=== PATIENT | male | born 1985 | race Caucasian/White ===

== ENCOUNTER 2017-05-02 10:37 | Emergency (ER) | payer MEDICAID ==
[2017-05-02 11:20] LABS: APPEARANCE CLEAR (CLEAR); BILIRUBIN NEGATIVE (NEGATIVE); COLOR YELLOW (YELLOW); GLUCOSE NEGATIVE (NEGATIVE); KETONE NEGATIVE (NEGATIVE); LEUKOCYTE ESTERASE NEGATIVE (NEGATIVE); NITRITE NEGATIVE (NEGATIVE); PROTEIN NEGATIVE (NEGATIVE); UROBILINOGEN NORMAL (NORMAL)
[2017-05-02 11:25] LABS: BASOPHILS 0.2 % (0-2); EOSINOPHILS 0.7 % (0-7); HEMATOCRIT 43.6 % (42.0-54.0); HEMOGLOBIN 15.8 g/dL (13.5-17.5); IMMATURE GRANULOCYTES 0.5 % (0-5); LYMPHOCYTES 13.3 % (15-50); MCH 30.7 pg (26.0-34.0); MCHC 36.2 g/dL (31.0-37.0); MCV 84.8 fL (80.0-100.0); MEAN PLATELET VOLUME 9.6 fL (7.4-10.4); MONOCYTES 6.6 % (2-11); NEUTROPHILS 78.7 % (40-80); PLATELET COUNT 278 10x3/uL (130-400); RBC 5.14 10x6/uL (4.20-6.10)
[2017-05-02 11:41] LABS: ALBUMIN 4.4 g/dL (3.4-5.0); ALKALINE PHOSPHATASE 45 U/L (46-116); ALT (SGPT) 28 U/L (10-68); BILIRUBIN - TOTAL 1.38 mg/dL (0.2-1.3); CALC OSMOLALITY 281 mosm/kg (275-300); CALCIUM 9.6 mg/dL (8.5-10.1); CARBON DIOXIDE 24.4 mmol/L (21.0-32.0); CHLORIDE - SERUM 102 mmol/L (98-107); GLUCOSE 104 mg/dL (74-106); LIPASE 108 U/L (73-393); POTASSIUM - SERUM 3.4 mmol/L (3.5-5.1); PROTEIN - SERUM 7.9 g/dL (6.4-8.2); SODIUM 141 mmol/L (136-145); UREA NITROGEN 15 mg/dL (7-18); eGFR NON AFRICAN AMERICAN > 90 mL/min (90-120)
== END 2017-05-02 13:17 | disposition home or self-care (01) ==
LOC: D.ER 10:37
PROVIDERS: Emergency Medicine
DX: R11.10 Vomiting, unspecified (principal)

== ENCOUNTER 2017-06-04 12:01 | Inpatient (IN) | payer MEDICAID ==
[~2017-06-04] VITALS: Ht 170.2 cm; Wt 68.0 kg
[2017-06-04 15:07] LABS: BASOPHILS 0.1 % (0-2); EOSINOPHILS 0.1 % (0-7); HEMATOCRIT 42.9 % (42.0-54.0); HEMOGLOBIN 15.1 g/dL (13.5-17.5); IMMATURE GRANULOCYTES 0.5 % (0-5); LYMPHOCYTES 3.8 % (15-50); MCH 30.7 pg (26.0-34.0); MCHC 35.2 g/dL (31.0-37.0); MCV 87.2 fL (80.0-100.0); MEAN PLATELET VOLUME 10.1 fL (7.4-10.4); MONOCYTES 10.3 % (2-11); NEUTROPHILS 85.2 % (40-80); PLATELET COUNT 238 10x3/uL (130-400); RBC 4.92 10x6/uL (4.20-6.10); RDW 12.9 % (11.5-14.5); WBC 15.3 10x3/uL (4.8-10.8)
[2017-06-04 15:40] LABS: ALBUMIN 3.8 g/dL (3.4-5.0); ANION GAP 14.7 mmol/L (8-16); BILIRUBIN - TOTAL 3.15 mg/dL (0.2-1.3); CARBON DIOXIDE 23.7 mmol/L (21.0-32.0); CREATININE - SERUM 1.2 mg/dL (0.6-1.3); POTASSIUM - SERUM 3.4 mmol/L (3.5-5.1); PROTEIN - SERUM 7.2 g/dL (6.4-8.2)
[2017-06-04 15:50] LABS: APTT 25.4 SECONDS (22.8-39.4); INR 1.07 (0.85-1.17); PROTIME 13.8 SECONDS (11.6-15.0)
[2017-06-04 19:00] VITALS: BP 101/59
--- NOTE | 2017-06-04 19:44 | NUR ---
RECEIVED FROM ER, PT ADMITED TO DR. LOPEZ, GIRL FRIEND AT BEDSIDE, PT DENIES ANY NEEDS AT THIS TIME, BED IS LOW, SRX2, CALL LIGHT IN REACH, WILL CONTINUE PLAN OF CARE
[2017-06-04 19:54] LABS: GLUCOSE - CSF 70 MG/DL (40-75); PROTEIN - CSF 49 MG/DL (12-60)
[2017-06-04 20:00] LABS: APPEARANCE - CSF COLORLESS; RBC - CSF 2 cmm (0-0)
[2017-06-04 21:47] LABS: APPEARANCE CLEAR (CLEAR); BILIRUBIN NEGATIVE (NEGATIVE); COLOR DK YELLOW (YELLOW); GLUCOSE NEGATIVE (NEGATIVE); KETONE SMALL mg/dL (NEGATIVE); LEUKOCYTE ESTERASE NEGATIVE (NEGATIVE); NITRITE NEGATIVE (NEGATIVE); PROTEIN NEGATIVE (NEGATIVE); SPECIFIC GRAVITY 1.015 (1.005-1.020); UROBILINOGEN NORMAL (NORMAL)
[2017-06-05] VITALS: BP 118/62
[2017-06-05 01:23] VITALS: BMI 23.5
[2017-06-05 04:00] VITALS: BP 117/73
--- NOTE | 2017-06-05 04:17 | NUR ---
PT SLEEPING, GIRLFRIEND LYING NEXT TO HIM, BED IS LOW, SRX2, CALL LIGHT IN REACH, WILL CONTINUE TO MONITOR
--- NOTE | 2017-06-05 07:09 | NUR ---
PT SITTING UP IN BED SLEEPING RR EVEN AND UNLABORED. NO S/S DISTRESS NOTED. GIRLFRIEND NOTED SLEEPING IN BED BESIDE HIM. WILL CONT TO MONITOR.
[2017-06-05 08:20] VITALS: BP 129/84
[2017-06-05 12:35] VITALS: BP 142/84
--- NOTE | 2017-06-05 13:00 | NUR ---
PAGE INTO DR LOPEZ PT HAS TEMP 101.2, NO TYLENOL ON EMAR.
--- NOTE | 2017-06-05 14:21 | NUR ---
ANOTHER PAGE INTO DR LOPEZ, STILL HAVENT HEARD FROM HIM. PT C/O HIGH FEVER. NO MEDICATION TO GIVE TO BRING DOWN FEVER.
[2017-06-05 15:06] VITALS: BP 146/91
--- NOTE | 2017-06-05 15:38 | NUR ---
HAVE PAGED DR LOPEZ 3 TIMES STILL NO ANSWER. SPOKE WITH BOOM AD WRITER AND DOMENIC YANG SUP. SAID OK TO ORDER TYLENOL FOR PT FEVER, WILL ORDER.
--- NOTE | 2017-06-05 18:36 | NUR ---
PT LAYING IN BED FLAT RR EVEN AND UNLABORED DENIES NEEDS
--- NOTE | 2017-06-05 19:20 | NUR ---
RECEIVED REPORT, WILL ASSUME CARE OF PT, PT SLEEPING, BED IS LOW, SRX2, CALL LIGHT IN REACH, WILL CONTINUE PLAN OF CARE
[2017-06-05 20:00] VITALS: BP 104/64
[2017-06-06] VITALS: BP 126/84
[2017-06-06 04:00] VITALS: BP 136/78
--- NOTE | 2017-06-06 04:22 | NUR ---
ASSESSMENT COMPLETE, SEE FLOWSHEET, BED IS LOW, SRX2,CALL LIGHT IN REACH, GIRLFRIEND LYING NEXT TO HIM, WILL CONTINUE PLAN OF CARE
[2017-06-06 05:30] LABS: BASOPHILS 0.2 % (0-2); EOSINOPHILS 0.3 % (0-7); HEMATOCRIT 41.5 % (42.0-54.0); HEMOGLOBIN 14.4 g/dL (13.5-17.5); IMMATURE GRANULOCYTES 0.3 % (0-5); LYMPHOCYTES 9.6 % (15-50); MCH 30.8 pg (26.0-34.0); MCHC 34.7 g/dL (31.0-37.0); MCV 88.9 fL (80.0-100.0); MEAN PLATELET VOLUME 10.3 fL (7.4-10.4); MONOCYTES 6.7 % (2-11); NEUTROPHILS 82.9 % (40-80); PLATELET COUNT 218 10x3/uL (130-400); RBC 4.67 10x6/uL (4.20-6.10); RDW 12.7 % (11.5-14.5); WBC 12.2 10x3/uL (4.8-10.8)
[2017-06-06 06:02] LABS: ALBUMIN 3.3 g/dL (3.4-5.0); ALKALINE PHOSPHATASE 57 U/L (46-116); ALT (SGPT) 20 U/L (10-68); CALC OSMOLALITY 269 mosm/kg (275-300); CALCIUM 8.7 mg/dL (8.5-10.1); CARBON DIOXIDE 24.8 mmol/L (21.0-32.0); CHLORIDE - SERUM 100 mmol/L (98-107); CREATININE - SERUM 1.1 mg/dL (0.6-1.3); GLUCOSE 108 mg/dL (74-106); POTASSIUM - SERUM 4.2 mmol/L (3.5-5.1); PROTEIN - SERUM 6.8 g/dL (6.4-8.2); SODIUM 135 mmol/L (136-145); UREA NITROGEN 11 mg/dL (7-18); eGFR NON AFRICAN AMERICAN 82 mL/min (90-120)
--- NOTE | 2017-06-06 07:12 | NUR ---
PT LAYING TO LEFT SIDE SLEEPING RR EVEN NON LABORED NO S/S DISTRESS NOTED. GIRLFRIEND IN BED WITH PT. WILL CONT TO MONITOR
[2017-06-06 08:04] VITALS: BP 131/88
[2017-06-06 12:00] VITALS: BP 120/79
[2017-06-06 16:00] VITALS: BP 118/64
--- NOTE | 2017-06-06 17:44 | NUR ---
PT IS UP TO SHOWER AT THIS TIME DENIES ANY NEEDS
--- NOTE | 2017-06-06 19:45 | NUR ---
RESTING IN BED WITH EYES CLOSED. RESPS EVEN/NONLABORED. MVI AT 100ML/HR INFUSING TO RFA. SEE ASSESSMENT. CPOC.
[2017-06-06 20:00] VITALS: BP 119/80
--- NOTE | 2017-06-06 22:00 | NUR ---
AWAKE AND WATCHING TV. REFILLED ICE BAGS THAT HE IS APPLYING TO HIS HEAD AND NECK. ASKED PT IS HE NEEDED PAIN MEDS, INITIALLY SAID HE WANTED TO WAIT, THEN SAID YES. MEDICATED WITH NORCO 5/325 TWO TABS. WILL MONITOR AND CPOC.
--- NOTE | 2017-06-06 23:26 | NUR ---
PT NAUSEATED. MEDICATED WITH ZOFRAN 8MG SIVP. CPOC.
[2017-06-07 02:00] VITALS: BP 142/92
[2017-06-07 04:00] VITALS: BP 147/80
--- NOTE | 2017-06-07 05:28 | NUR ---
PT STILL WITH PAIN TO NECK AND HEAD. KEEPING ICE PACKS ON HIS HEAD AND NECK. TAKING NORCO 10/325 TWO TABS EVERY 4 HOURS ATC. HE IS NOT FEELING LIKE HE IS BETTER. MONITOR AND CPOC.
[2017-06-07 05:29] LABS: BASOPHILS 0.3 % (0-2); EOSINOPHILS 1.3 % (0-7); HEMATOCRIT 38.8 % (42.0-54.0); HEMOGLOBIN 13.5 g/dL (13.5-17.5); IMMATURE GRANULOCYTES 0.6 % (0-5); LYMPHOCYTES 11.2 % (15-50); MCH 30.4 pg (26.0-34.0); MCHC 34.8 g/dL (31.0-37.0); MCV 87.4 fL (80.0-100.0); MEAN PLATELET VOLUME 9.8 fL (7.4-10.4); MONOCYTES 6.7 % (2-11); NEUTROPHILS 79.9 % (40-80); PLATELET COUNT 239 10x3/uL (130-400); RBC 4.44 10x6/uL (4.20-6.10); RDW 12.3 % (11.5-14.5); WBC 10.9 10x3/uL (4.8-10.8)
[2017-06-07 05:51] LABS: CALC OSMOLALITY 275 mosm/kg (275-300); CALCIUM 8.9 mg/dL (8.5-10.1); CARBON DIOXIDE 28.2 mmol/L (21.0-32.0); CHLORIDE - SERUM 101 mmol/L (98-107); CREATININE - SERUM 0.9 mg/dL (0.6-1.3); GLUCOSE 110 mg/dL (74-106); POTASSIUM - SERUM 3.9 mmol/L (3.5-5.1); SODIUM 138 mmol/L (136-145); UREA NITROGEN 9 mg/dL (7-18); eGFR NON AFRICAN AMERICAN > 90 mL/min (90-120)
--- NOTE | 2017-06-07 07:15 | NUR ---
AM ROUNDS- PT IN BED, STATING THAT HE HURTING, INFORMED HIM THAT HE CAN NOT HAVE ANYTHING UNTIL ABOUT 8. MATERNITY FLOOR SUPERVISOR PROVIDED PT WITH ICE PACK. PT DENIES ANY OTHER NEEDS AT THIS TIME. CALL LIGHT IN REACH, NAD NOTED, WILL CONTINUE TO MONITOR.
[2017-06-07 08:19] VITALS: BP 131/89
--- NOTE | 2017-06-07 10:51 | NUR ---
PT IN BED, WITH SHIRT OVER HIS EYES, APPEARS TO BE SLEEPING. CALL LIGHT IN REACH, NAD NOTED, WILL CONTINUE TO MONITOR.
[2017-06-07 11:31] VITALS: BP 132/86
--- NOTE | 2017-06-07 14:20 | NUR ---
CALLED PHARMACY AND SPOKE WITH LATRELL RICHARDSON, INFOMRED HER THAT I NEED BANANA BAG FOR PT. LATRELL STATED THAT SHE WOULD BRING IT UP SHORTLY.
--- NOTE | 2017-06-07 15:11 | NUR ---
RECEIVED CALL FROM DR. LOPEZ, INFORMED HIM THAT PT IS STILL HAVING SEVERE HEADACHES AND NECK AND EAR PAIN. DR. LOPEZ STATED TO ORDER HIM A LIDOCAINE PATCH. ALSO INFORMED HIM THAT PT WANTED NEURO TO SEE HIM BEFORE HE IS DISCHARGED. DR. LOPEZ STATED THAT HE WOULD CONSULT DR. DOSHI IN THE AM.
[2017-06-07 15:12] VITALS: BP 128/74
--- NOTE | 2017-06-07 16:24 | NUR ---
LIDOCAINE PATCH APPLIED TO NECK AT THIS TIME. PT IN BED, DENIES ANY NEEEDS AT THIS TIME. CALL LIGHT IN REACH, NAD NOTED, WILL CONTINUE TO MONITOR.
--- NOTE | 2017-06-07 19:30 | NUR ---
RECEIVED PT AWAKE/ALERT AND IN ROOM WITH HIS GIRLFRIEND. ICEPACKS ON HIS HEAD AND NECK. WEARING NEWLY ORDERED LIDODERM PATCH ON NECK, SAYS IT HELPS A LITTLE. NONLABORED RESPIRATIONS ON ROOM AIR. MVI AT 100ML/HR INFUSING TO RIGHT A/C. PT IN PAIN AND REQUESTING PAIN MED. SEE ASSESSMENT, MONITOR AND CPOC. MEDICATE FOR PAIN.
--- NOTE | 2017-06-07 22:48 | NUR ---
PAGE DR DOSHI AT [id number] VIA [employer] TO NOTIFY OF CONSULT.
[2017-06-08] VITALS: BP 127/83
[2017-06-08 04:00] VITALS: BP 122/75
--- NOTE | 2017-06-08 05:00 | NUR ---
RESTING WITH EYES CLOSED. IVF INFUSING. CONTINUE TO MONITOR.
--- NOTE | 2017-06-08 07:16 | NUR ---
AM ROUNDS- PT IN BED, WITH SHIRT OVER HIS EYES. GIRLFRIEND AT BEDSIDE, PT DENIES ANY NEEDS AT THIS TIME. CALL LIGHT IN REACH, BED LOW AND WHEELS LOCKED, BEDRAIL X2, LT FA IV INFUSING BANANA BAG AT 100CC/HR. NAD NOTED, WILL CONTINUE TO MONITOR.
[2017-06-08 07:55] VITALS: BP 131/87
[2017-06-08 12:50] VITALS: BP 133/68
[2017-06-08 13:16] VITALS: Ht 170.2 cm; Wt 68.0 kg
--- NOTE | 2017-06-08 13:21 | NUR ---
Patient Name: MANDI VÁSQUEZ Admission Status: ER Accout number: [id number] Admission Date: 06-04-2017 : 1985 Admission Diagnosis:FEVER, UNSPECIFIED Attending: FELIPA Current LOS: 4 Anticipated DC Date: 06-09-2017 Planned Disposition: Home Primary Insurance: [employer] Discharge Planning Comments: * Is the patient Alert and Oriented? Yes 0 * How many steps to enter\exit or inside your home? 1 0 * PCP NONE 0 * Pharmacy [facility] 0 * Preadmission Environment Home with Family 0 * ADLs Independent 0 * Equipment None 0 * Other Equipment NO MEDICAL EQUIPMENT PROVIDER PREFERENCE 0 * List name and contact numbers for known caregivers / representatives who currently or will assist patient after discharge: HARLEY WILSON, FATHER, 0 * Community resources currently utilized None 0 * Please name any agencies selected above. NONE 0 * Additional services required to return to the preadmission environment? No 0 * Can the patient safely return to the preadmission environment? Yes 0 * Has this patient been hospitalized within the prior 30 days at any hospital? No 0 CM MET WITH PT IN ROOM TO DISCUSS DISCHARGE PLANNING AND NEEDS. PT REPORTS LIVING IN [address] [place] WITH HIS GIRLFRIEND AND TWO DOGS. PT HAS NO MEDICAL EQUIPMENT AND NO OUTSIDE SERVICES ASSISTING IN THE HOME. CM DISCUSSED AVAILABILITY OF HOME HEALTH, REHAB SERVICES AND MEDICAL EQUIPMENT. PT DENIES DISCHARGE NEEDS, REPORTS HIS FATHER WILL PICK HIM UP FOR DISCHARGE HOME. PT REPORTS HAVING NO PRIMARY CARE DOCTOR AND HAS NOT BEEN LOOKING FOR ONE, BUT CONSIDERING WHAT HAS HAPPENED, HE MAY BE LOOKING FOR ONE NOW. CM PROVIDED AND DISCUSSED [facility] INFORMATION. PT PLANS TO DISCHARGE HOME TO HIS [place] WHERE HE LIVES WITH HIS GIRLFRIEND. NO ANTICIPATED DISCHARGE NEEDS AT THIS TIME. CM TO FOLLOW AND ASSIST NEEDED. Manager Garage: Alistair Mcneill
--- NOTE | 2017-06-08 14:05 | NUR ---
2 TABS OF NORCO 5/325 GIVEN FOR PAIN LEVEL OF 10/10. PT IN BED, WITH SHIRT OVER EYES, DENIES ANY OTHER NEEDS AT THIS TIME. CALL LIGHT IN REACH, NAD NOTED, WILL CONTINUE TO MONITOR.
--- NOTE | 2017-06-08 18:10 | NUR ---
COMPLAINTS OF HEADACHE 08/09, NORCO 2 TABS GIVEN ALONG WITH 2 NEW ICE PACKS.
--- NOTE | 2017-06-08 19:30 | NUR ---
RECIEVED SHIFT REPORT. PT IS LYING IN BED. ALERT AND ORIENTED AND ABLE TO VERBALIZE NEEDS. IV IS PATENT AND FLUIDS ARE RUNNING PER ORDER. PT IS AMBULATORY BUT WAS INSTRUCTED TO CALL FOR ANY ASSISTANCE NEEDED. SENDY TO TOP OF HEAD C/D/I. PT STATES PAIN 4/10. NO NEEDS ARE VERBALIZED AT THIS TIME. VISITOR IS AT THE BEDSIDE. WILL CONTINUE TO MONITOR. SIDE RAILS ARE UP X 2. BED IS IN LOWEST POSITION. CALL LIGHT IS WITHIN REACH.
--- NOTE | 2017-06-08 20:47 | NUR ---
SHIFT ASSESSMENT COMPLETED. SCHEDULED MEDICATION GIVEN PER ORDER. LIDOCAINE PATCH REMOVED AT THIS TIME. NO NEEDS ARE VOICED. WILL MONITOR. VISITOR AT BEDSIDE. SIDE RAILS X 2. BED LOW. CALL LIGHT IN REACH.
[2017-06-08 23:00] VITALS: BP 143/87
--- NOTE | 2017-06-09 03:27 | NUR ---
PT IN BED WITH NO DISTRESS. RESPIRATIONS ARE EVEN AND UNLABORED. SIDE RAILS X 2. BED IS LOW. CALL LIGHT IN REACH.
[2017-06-09 05:36] VITALS: BP 137/82
--- NOTE | 2017-06-09 08:05 | NUR ---
AM ROUNDING DONW WITH PATIENT COMPLAINING OF HEADACHE PAIN. TOP OF HEAD IS SEEN WITH 2 INCISIONS WITH SURGICAL CLIPS INTACT. THERE IS SOME CLEAR FLUID DRAINING FROM RIGHT INCISION. LEFT FA SEEN WTIH BANANA BAG INFUSING AT 100 CC/HR. ON ROOM AIR. WILL CPOC.
[2017-06-09 08:34] VITALS: BP 133/89
--- NOTE | 2017-06-09 08:48 | NUR ---
IV RE-SITED TO RIGHT FA WITH 22 G X 1 STICK LEFT FA WAS INFILTRATING. TOLERATED WELL.
[2017-06-09] MEDS ORDERED: BACLOFEN10 MG PO (10:25)
[2017-06-09] MEDS ORDERED: HYDROCODONE-APA1 TAB PO (10:27)
--- NOTE | 2017-06-09 12:20 | NUR ---
COPY OF WRITTEN SCRIPT FOR NORCO 10-325 MG #30 TO TAKE 1 TAB EVERY 4 HOURS NEEDED FOR PAIN WITH NO REFILLS AND BACLOFEN 10 MG #30 TO TAKE 1 PILL 3X A DAY WITH NO REFILLS PLACED INTO CHART.
[2017-06-09 12:24] VITALS: BP 134/87
--- NOTE | 2017-06-09 14:19 | NUR ---
PATIENT OUT OF SHOWER AND DRESSED IN [place] [employer] FROM HOME. STATES THAT HE IS DIZZY "MY BALANCE IS A LITTLE OFF". I ASKED THAT HE LAY DOWN SOME BEFORE DISCHARGE AND HE SAID THAT HIS UNCLE IS IN THE TRUCK OUTSIDE AND HE DID NOT WANT HIM TO WAIT. I AGAIN ASKED THAT HE WAIT A LITTLE BIT AND HE SAID NO. SALINE LOCK REMOVED WITH CATH TIP INTACT. INCISIONS TO TOP OF HEAD ARE COVERED WITH 4 X 4 AND PAPER TAPE. VERBAL AND WRITTEN DISCHARGE INSTRUCTIONS GIVEN TO PATIENT AND FEMALE MEMBER.
--- NOTE | 2017-06-09 14:35 | NUR ---
DISCHARGED HOME VIA WHEELCHAIR.
== END 2017-06-09 14:35 | disposition home or self-care (01) | DRG 864 ==
LOC: D.ER 12:01 → D.M2 19:12
PROVIDERS: Emergency Medicine; ADMIT Family Medicine
PROC: 009U3ZZ Drainage of Spinal Canal, Percutaneous Approach (ICD-10-PCS; principal; 2017-06-04)
DX: R50.9 Fever, unspecified (principal); R51 Headache; R11.2 Nausea with vomiting, unspecified; S01.01XD Laceration without foreign body of scalp, subsequent encounter; W16.122D Fall into natural body of water striking bottom causing other injury, subsequent encounter; M54.2 Cervicalgia

== ENCOUNTER 2017-06-17 18:10 | Emergency (ER) | payer MEDICAID ==
[2017-06-08 13:16] VITALS: BMI 23.5
[~2017-06-17 18:10] MED LIST: BACLOFEN10 MG PO; HYDROCODONE-APA1 TAB PO
== END 2017-06-17 19:30 | disposition home or self-care (01) ==
LOC: D.ER 18:10
DX: Z48.02 Encounter for removal of sutures (principal); F17.200 Nicotine dependence, unspecified, uncomplicated

== ENCOUNTER 2019-01-12 18:11 | Emergency (ER) | payer SELFPAY ==
[2017-06-08 13:16] VITALS: BMI 23.5
== END 2019-01-12 19:35 | disposition left against medical advice (07) ==
LOC: D.ER 18:11
DX: M25.512 Pain in left shoulder (principal)